=== PATIENT | male | born 1945 | race Caucasian/White ===

== ENCOUNTER 2024-05-07 21:19 | Emergency (ER) | payer MEDICARE, OTHER, SELFPAY ==
[2024-05-07 21:49] LABS: Urine Albumin 1+ (Neg - Trace); Urine Bilirubin Negative (Negative); Urine Character Clear (Clear); Urine Color Yellow; Urine Glucose Negative (Negative); Urine Ketone Negative (Negative); Urine Leukocyte 1+ (Negative); Urine Nitrite Negative (Negative); Urine Occult Blood 3+ (Negative); Urine Urobilinogen Negative (Neg - 1+)
[2024-05-07 22:25] LABS: Urine Bacteria Few (Negative); Urine Red Blood Cell 21-25 /HPF (0-2); Urine White Cell 50-60 /HPF (0-5)
== END 2024-05-07 23:39 ==
LOC: EMR 21:19
PROVIDERS: Emergency Medicine
DX: R33.9 Retention of urine, unspecified (principal)
CPT/HCPCS: 81003; 81015; 87086

== ENCOUNTER 2024-08-15 14:25 | Inpatient (IN) | payer MEDICARE, OTHER, SELFPAY ==
[2024-08-15] VITALS (19 sets, daily range): BP systolic 121–164; BP diastolic 67–89; BMI 25.8
--- NOTE | 2024-08-15 09:39 | ED.GENMED ---
History of Present Illness
General
Chief Complaint: Dizziness
Source: patient
Exam Limitations: none
Time Seen by Provider: 08/15/24 09:25
History of Present Illness
History of Present Illness:
79yoM with a history of atrial fibrillation s/p 2 ablations no longer on medications and radiation cystitis presenting for evaluation of shortness of breath. Patient was initiated on hyperbaric oxygen therapy 2 weeks at [facility]
for radiation-related hemorrhagic cystitis. He is receiving treatments 5x a week and is scheduled to have 50 treatments total. Shortly after starting these treatments, he developed shortness of breath. He states he is unable to walk more than 10
steps without having to stop to catch his breath. He also started to notice bilateral lower extremity swelling over the past week. The triage note documents dizziness which he is describing as exertional dyspnea. He denies any lightheadedness,
syncope, or vertiginous symptoms. No chest pain.
Phy Exam
General Physical Exam
General Presentation: well appearing and no apparent distress
General age: appears stated age
General Skin: warm and dry
General Habitus: normal
General Mental: alert
ENT Exam
ENT Exam: normocephalic
Cardiovascular Exam
Cardiovascular Exam: regular rate/rhythm and other (2+ pitting edema in bilateral lower extremities)
Pulmonary Exam
Pulmonary Exam: lungs clear, no respiratory distress, no rales, no crackles, no rhonchi and no wheezing
Neurological Exam
Neurological Exam: alert
[place] Coma Scale
Eye Opening: Spontaneous
Verbal Response: Oriented
Motor Response: Obeys Commands
GCS Total Score: 15
Skin Exam
Skin Exam: normal color and warm/dry
Psychiatric Exam
Psychiatric Exam: normal mood/affect
Course
Orders/Labs/Results
Orders:
Orders
08/15/24 09:38
Cardiac Monitoring- Treatment ONCE
CR Chest - 2 Views Urgent
Comment:
Reason For Exam: SOB
Venous Doppler Lwr Ext Bilat [US Periph Venous LOWER Ext Pietro] Urgent
Comment:
Reason For Exam: bilateral leg swelling
08/15/24 09:51
Complete Blood Count/With Diff Urgent
Comprehensive Metabolic Panel Urgent
Ferritin Urgent
Comment: ADD ON
Iron Urgent
Comment: ADD ON
NT-proBNP Urgent
TSH Reflex To Free T4 Urgent
Comment: ADD ON
Total Iron Binding Urgent
Comment: ADD ON
Troponin I Urgent
Vitamin B12 Urgent
Comment: ADD ON
08/15/24 11:00
Blood Bank Products [* Blood Bank Products] Urgent
Blood Bank Products: *Packed RBC Leuko(PRBC's)
Quantity: 2
Transfuse Today: Yes
Reason: Anemia
08/15/24 11:03
Electrocardiogram (*1) Urgent
Reason for Study: Shortness of Breath
EKG- Treatment ONCE
08/15/24 11:07
Type+Screen Urgent
08/15/24 11:23
ABO2 Urgent
BBK Wristband Number:
Associate notified that ABO2 has been ordered: HENNY-ER
Date: 08/15/24
Time: 11:17
Director Clinical Operations ID: [id number]
08/15/24 13:51
Add On- LAB Urgent
Tests Added?: Ferritin, Iron, TIBC, Iron % saturation, vitamin b12
08/15/24 14:04
Echo 2D MMode Color/Doppler Routine
Reason for Study: shortness of breath and LE swelling
Furosemide [Lasix] 20 mg IV NOW STA
08/15/24 14:09
Admit/Transfer Patient As Directed
Co-Sign Provider:
Level of Care: Inpatient admission
Assign to:: Telemetry
Physician / Group: Judy Bush
Diagnosis: symptomatic anemia
Reason for Telemetry: Chest Pain syndromes
Date to Stop Telemetry: 08/17/24
Time to Stop Telemetry: 11:00
Reason for Hospitalization: symptomatic anemia
Expected length of stay greater than two midnights?: Yes
ELOS- Estimated Length of Stay in days: 3
I certify the patient meets the requirements for IP care: Yes
Code Status As Directed
Resuscitation Status: Full Code
PRN Pain Medication Management As Directed
May give lesser potent ordered pain med per pt: Yes
preference::
Protocol:: Medication orders for pain may be administered in a
manner that supports deferring to patient preference
when the pt is:
- Requesting an ordered lesser potent pain medication.
Least to most potent pain medications are defined
as: acetaminophen < NSAID < tramadol < opioids
(morphine, oxycodone, hydromorphone).
- Requesting a lesser dose of the same medication IF
ORDERED.
- Requesting a less intrusive route of administration
if both routes are prescribed by the provider (PO <
IV).
08/15/24 14:10
Add On- LAB Routine
Tests Added?: TSH with reflex to T4
08/17/24 11:00
DC Protocol for Telemetry ONCE
Abnormal Lab Results
08/15/24 08/15/24
09:51 11:07
WBC 3.4 L 10^3/uL
(4.8-10.8)
RBC 2.19 L 10^6/uL
(4.70-6.10)
Hgb 5.9 L* g/dL
(13.0-18.0)
Hct 20.0 L* %
(39.0-52.0)
MCH 26.9 L pg
(27.0-31.0)
MCHC 29.5 L g/dL
(33.0-37.0)
RDW 17.6 H %
(11.5-14.5)
Plt Count 94 L 10^3/uL
(130-400)
Absolute Lymphs (auto) 0.5 L 10^3/uL
(1.2-3.4)
Immature Gran % 0.9 H %
(0-0.5)
Lymphocytes % 14.0 L %
(20.5-51.1)
Creatinine 0.6 L mg/dL
(0.7-1.3)
Glucose 101 H mg/dl
(70-99)
Iron 35 L ug/dl
(49-181)
% Saturation 8 L %
(20-50)
Ferritin 7.9 L ng/ml
(17.9-464.0)
Total Protein 5.5 L g/dl
(6.3-8.2)
Albumin 3.3 L g/dl
(3.5-5.0)
Crossmatch IS Only See Detail
08/15/24 09:51
08/15/24 09:51
Vital Signs
Initial and Last Documented VS:
Initial Vital Signs
Temp Pulse Resp Pulse Ox
97.5 F 71 18 100
08/15/24 09:08 08/15/24 09:08 08/15/24 09:08 08/15/24 09:08
Last Documented Vital Signs
Temp Pulse Resp BP Pulse Ox
97.8 F 70 19 134/72 97
08/15/24 14:22 08/15/24 14:45 08/15/24 14:45 08/15/24 14:48 08/15/24 12:43
MDM/Problems Addressed
Differential Diagnosis Includes:
79yoM here with exertional dyspnea x 2 weeks and bilateral leg swelling x 1 week. Symptoms started after being initiated on hyperbaric oxygen therapy for radiation cystitis. VSS. He is well in no acute distress. He is speaking in full sentences
without difficulty and lungs clear to auscultation. There is 2+ pitting edema in bilateral lower extremities. Differential diagnosis includes but is not limited to: VTE, CHF, anasarca, ACS
Initial ED plan: Check cardiac labs, EKG, CXR, and bilateral venous duplex.
*EKG
Interpreted by ED Provider?: Yes
EKG Intrepretation Date: 08/15/24
Heart Rate: 64
Rate: normal
Rhythm: sinus
[place]: normal axis
Interval: normal interval
Ischemia: no ischemia
*Critical Care Note
Total Time (30-74mins, 75-104mins- exclusive of procedures): Not Applicable
Update Note
Update Note:
Labs reveal a hemoglobin of 5.9. Unclear baseline as there are no prior labs to compare to although patient has never required a blood transfusion in the past. He has a history of hematuria but has not had any bleeding in the last week. He denies
any hematochezia. Consent obtained and 2 units PRBCs ordered for transfusion. BNP 529. EKG shows normal sinus rhythm without ischemic changes and troponin within normal limits. Patient admitted for further evaluation and management.
ED Attending Note
-
Portions of this chart may have been created with voice recognition software.� Occasional wrong word or��sound alike� substitutions may have occurred due to the inherent limitations of voice recognition software.
Discharge Plan
Departure
Patient Disposition: Admit
Date of Disposition: 08/15/24
Time of Disposition: 11:39
Presentation/result/management discussed w/ accepting MD/DO: Hospitalist
Discharge Problem:
Symptomatic anemia, Bilateral lower extremity edema
Interventions
Interventions:
*Risk Screen - Suicide Last Done: 08/15/24 09:54
*General Assessment Last Done: 08/15/24 09:44
*Neglect/Abuse Screening Last Done: 08/15/24 09:54
*ED- Fall Risk Assessment Last Done: 08/15/24 09:44
*ED COVID-19 Vaccine History Last Done: 08/15/24 09:44
ED- Neurological Assessment Last Done: 08/15/24 09:54
ED- Cardiac Assessment Last Done: 08/15/24 11:34
[2024-08-15 10:05] LABS: % Basophils 0.3 % (0-2); % Eosinophils 2.6 % (0-6); % Immature Granulocytes 0.9 % (0-0.5); % Monocytes 7.6 % (1.7-9.3); % Neutrophils 74.6 % (42.2-75.2); Absolute Eosinophils 0.1 10^3/uL (0-0.7); Absolute Lymphocytes 0.5 10^3/uL (1.2-3.4); Absolute Monocytes 0.3 10^3/uL (0.1-0.6); Absolute Neutrophils 2.6 10^3/uL (1.4-6.5); Hemoglobin 5.9 g/dL (13.0-18.0); Mean Corp Hgb Conc. 29.5 g/dL (33.0-37.0); Mean Corpuscular Hgb 26.9 pg (27.0-31.0); Mean Corpuscular Volume 91.3 fL (80.0-94.0); Nucleated Red Blood Cells % 0 % (-); Red Blood Cell Count 2.19 10^6/uL (4.70-6.10); Red Cell Dist. Width 17.6 % (11.5-14.5); White Blood Cell Count 3.4 10^3/uL (4.8-10.8)
[2024-08-15 10:13] LABS: ALT (SGPT) 14 U/L (0-50); AST (SGOT) 19 U/L (17-59); Albumin 3.3 g/dl (3.5-5.0); Alkaline Phosphatase 63 U/L (38-126); Blood Urea Nitrogen 14 mg/dl (9-20); Carbon Dioxide 26 mmol/L (22-30); Chloride 106 mmol/L (98-107); Estimated Creatinine Clearance 108 ml/min; Glucose 101 mg/dl (70-99); Potassium 4.2 mmol/L (3.5-5.1); Sodium 139 mmol/L (135-145); Total Bilirubin 0.5 mg/dl (0.2-1.3); Total Protein 5.5 g/dl (6.3-8.2); eGFR > 60.00
[2024-08-15 10:24] LABS: NT-proBNP 529 pg/ml; Troponin I < 0.012 ng/ml
[2024-08-15 10:46] LABS: Mean Platelet Volume 9.8 fL (7.4-10.4); Platelet Count 94 10^3/uL (130-400)
--- NOTE | 2024-08-15 13:46 | HPS.HSE ---
Addendum entered and electronically signed by Judy Bush MD 08/15/24 14:23:
*patient is prescribed amoxicillin with recent dental procedure - will prescribe here
Original Note:
Family Physician
-
Family Physician: Luli Ocampo
Chief Complaint
-
shortness of breath
History of Present Illness
Mr. Mark Boyd is a 79 yo man with hx afib s/p ablations, prostate CA, radiation cystitis (initiated on hyperbaric oxygen therapy 2 weeks ago at [facility]; self-catheterizes) presents to the ER complaining of shortness of breath and bilateral
lower extremity swelling.
Patient was started on hyperbaric oxygen therapy last week and has noted improvement in hematuria. He states his urine is now clear. Prior he reports significant hematuria. He states he last had blood drawn 4-5 weeks ago. He was started on iron
pills in past but couldn't tolerate secondary to constipation.
Last week he noticed increased shortness of breath with exertion. No orthopnea. Yesterday he couldn't take 10 steps without feeling short of breath. No chest pain. He felt a heavy heart beat but did not feel like prior afib.
No recent fevers/chills. No cough or congestion. No abdominal pain. No nausea/vomiting. No diarrhea. No black or bloody stools.
Patient self catheterizes.
Medical History
Past Medical History
Past Medical History: Reports Other (afib s/p ablations, prostate CA, radiation cystitis (initiated on hyperbaric oxygen therapy 2 weeks ago at [facility]))
Past Surgical History: Reports Other
Social History
Tobacco: Non-smoker
Alcohol: None
Family History
Family History: Not pertinent
Allergies / Home Medications
Allergies reflects when Allergies were last updated in [facility].
Home Medications with original date entered in [facility]
Allergy/Medication List:
Allergies
Allergy/AdvReac Type Severity Reaction Status Date / Time
No Known Allergies Allergy Verified 08/15/24 09:09
Home Medications
acetaminophen 325 mg tablet (Tylenol) 650 mg PO Q6HPRN PRN mild pain 08/15/24
amoxicillin 500 mg capsule 500 mg PO QID 08/15/24
Review of Systems
-
History Source: Patient
A 12 point ROS was completed and negative except as noted: Yes
Physical Exam
Vital Signs
Vital Signs
Temp Pulse Resp BP Pulse Ox
97.7 F 73 15 126/67 97
08/15/24 12:59 08/15/24 12:59 08/15/24 12:59 08/15/24 12:59 08/15/24 12:43
Physical Exam
General: No Apparent Distress and Conversant
HEENT: PERRLA and Other (pale conjunctiva )
Respiratory: Clear; No Wheezes
Cardiac: S1/S2 and Regular Rhythm
GI: Soft and Non Tender
Musculoskeletal: No Edema
Skin: Warm and Dry; No Rash
Neuro: AO x 3
Psych: Calm
Laboratory Results
-
08/15/24 09:51
08/15/24 09:51
Laboratory Results
Total Bilirubin 0.5 mg/dl (0.2-1.3) 08/15/24 09:51
AST 19 U/L (17-59) 08/15/24 09:51
ALT 14 U/L (0-50) 08/15/24 09:51
Alkaline Phosphatase 63 U/L (38-126) 08/15/24 09:51
Troponin I < 0.012 ng/ml 08/15/24 09:51
Data Reviewed
-
Diagnostic Radiology: Report Reviewed by me
Lab Data: Labs Reviewed by me
Impression/Plan
-
Mr. Mark Boyd is a 79 yo man with hx afib s/p ablations, prostate CA, radiation cystitis (initiated on hyperbaric oxygen therapy 2 weeks ago at [facility]) presents to the ER complaining of shortness of breath and bilateral lower extremity
swelling.
Triage VS: T 97.5, P 71, RR 18, SpO2 100%
LABS: WBC 3.4, Hg 5.9, PLT 94, Na 139, K+ 4.2, CO2 26, Cr 0.6, Glucose 101, Ca 9.0, T. Bili 0.5, AST 19, ALT 14, Alk Phos 63, Trop < 0.012
CXR: IMPRESSION: Basilar changes of subsegmental atelectasis/scarring. Otherwise, clear lungs.
LE US: IMPRESSION: Negative for bilateral lower extremity deep venous thrombosis.
Symptomatic Anemia
Dyspnea on Exertion
-etiology may be related to prior hematuria, although symptoms worsening post treatment and hematuria is now resolved. Will monitor response to transfusions and iron studies.
-ordered for 2 units PRBC in the ER
-add on iron studies
-admit to telemetry
-repeat Hg this evening
Bilateral Lower Extremity Swelling
concern for heart failure, unknown EF
-TTE
-lasix 20mg IV now and daily
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
Atrial Fibrillation
-hx ablation
-not on AC
DVT PPx SCD
FULL CODE
[2024-08-15 14:31] LABS: Iron 35 ug/dl (49-181)
[2024-08-15 14:41] LABS: Percent Saturation 8 % (20-50); Total Iron Binding Capacity 398 ug/dl (261-462)
[2024-08-15] MEDS: LASIX 20 MG IV (14:48)
[2024-08-15 16:07] LABS: TSH Reflex To Free T4 2.01 uIU/ml (0.47-4.68)
[2024-08-15 16:10] LABS: Ferritin 7.9 ng/ml (17.9-464.0)
[2024-08-15 16:25] LABS: Vitamin B12 246 pg/ml (239-931)
--- NOTE | 2024-08-15 17:14 | PTCARENOTE ---
Pt transferred from ED. Pt ambulated into room. Pt AAOX3, able to make needs known, VSS. Pt oriented to unit, call calvillo within reach, bed in lowest position. Will continue with current plan.
[2024-08-15] MEDS: AMOXIL 500 MG PO ×2 (17:28→21:18)
[2024-08-15 23:05] LABS: Hemoglobin 7.3 g/dL (13.0-18.0)
--- NOTE | 2024-08-16 00:03 | PTCARENOTE ---
Pt's repeat Hgb after 2 units of PRBCs is 7.3. Pt reports that he now has a few small red scabs in his urine and his urine is 'gokul'-colored'. AISSATOU Colmenares notified, will recheck Hgb in AM.
[2024-08-16 03:08] VITALS: BP 110/57; BMI 24.8
[2024-08-16 07:23] LABS: Hematocrit 24.3 % (39.0-52.0); Hemoglobin 7.5 g/dL (13.0-18.0); Mean Corp Hgb Conc. 30.9 g/dL (33.0-37.0); Mean Corpuscular Hgb 27.4 pg (27.0-31.0); Mean Corpuscular Volume 88.7 fL (80.0-94.0); Mean Platelet Volume 10.6 fL (7.4-10.4); Platelet Count 98 10^3/uL (130-400); Red Blood Cell Count 2.74 10^6/uL (4.70-6.10); Red Cell Dist. Width 18.2 % (11.5-14.5); White Blood Cell Count 4.6 10^3/uL (4.8-10.8)
[2024-08-16 07:29] VITALS: BP 130/72
[2024-08-16 07:43] LABS: Blood Urea Nitrogen 13 mg/dl (9-20); Carbon Dioxide 29 mmol/L (22-30); Chloride 106 mmol/L (98-107); Estimated Creatinine Clearance 91 ml/min; Glucose 89 mg/dl (70-99); HDL Cholesterol 56 mg/dl; LDL Cholesterol, Calculated 88 mg/dl; Magnesium 2.1 mg/dl (1.6-2.3); Potassium 4.4 mmol/L (3.5-5.1); Sodium 140 mmol/L (135-145); Total Cholesterol 158 mg/dl (50-199); Triglyceride 72 mg/dl (10-149); Very Low Density Lipoprotein 14 mg/dl (0-30); eGFR > 60.00
[2024-08-16] MEDS: AMOXIL 500 MG PO ×2 (07:47→11:59)
[2024-08-16] MEDS: LASIX 20 MG IV (07:47)
--- NOTE | 2024-08-16 11:02 | CM ---
government program manager reviewed patient chart and met with patient and patient states he lives with his spouse in a bilevel home, patient is independent with adl's and ambulation, no dme, patient drives.
PCP: Luli Ocampo
Pharmacy: [facility]
Plan; Home when stable. No needs.
--- NOTE | 2024-08-16 11:32 | W.PN.HOSP.TC ---
Today's Communication/Plan
-
OK for DC today post IV iron infusion
Assessment / Plan
Assessment / Plan
Mr. Mark Boyd is a 79 yo man with hx afib s/p ablations, prostate CA, radiation cystitis (initiated on hyperbaric oxygen therapy 2 weeks ago at [facility]) presents to the ER complaining of shortness of breath and bilateral lower extremity
swelling.
CXR: IMPRESSION: Basilar changes of subsegmental atelectasis/scarring. Otherwise, clear lungs.
LE US: IMPRESSION: Negative for bilateral lower extremity deep venous thrombosis.
CONCLUSIONS
Normal left ventricular size and systolic function. LVEF 55-60%.
Mildly enlarged right ventricle with normal systolic function.
Severely dilated left atrium.
Prolapse of the posterior mitral leaflet was present. Moderate mitral
regurgitation.
Mild to moderate tricuspid regurgitation. PASP 46 mmHg.
No prior study available for comparison.
Indications:
SHORTNESS OF BREATH AND LE SWELLING
Symptomatic Anemia
Dyspnea on Exertion
-etiology may be related to prior hematuria, although symptoms worsening post treatment and hematuria is now resolved.
-appropriate rise in Hg post transfusions, no active bleeding and symptoms resolved --> OK for DC
-IV iron prior to DC
-follow up outpatietn labs
Hx Radiation Cystitis; receiving hyperbaric oxygen therapy - to continue as outpatient
Bilateral Lower Extremity Swelling
concern for heart failure, preserved EF acute Exacerbation; likely exacerbated by anemia
Moderate MR with mitral valve prolapse
-TTE results above, nl EF. Patient states leaky valve isn't new
-s/p IV Lasix - DC on oral lasix PRN
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
Atrial Fibrillation
-hx ablation
-not on AC
DVT PPx SCD
FULL CODE
Anticipated Discharge: Today
Subjective/Interval History
-
Date of Service: August 16, 2024
feeling much better
shortness of breath resolved
legs less swollen
Objective Data
-
Labs:
Laboratory Results
08/16/24
06:08
WBC 4.6 L
Hgb 7.5 L
Hct 24.3 L
Plt Count 98 L
Sodium 140
Potassium 4.4
Chloride 106
Carbon Dioxide 29
BUN 13
Creatinine 0.7
Glucose 89
Calcium 9.0
Vital Signs:
Vital Signs
Temp Pulse Resp BP Pulse Ox
97.7 F 70 18 130/72 95
08/16/24 07:29 08/16/24 07:29 08/16/24 07:29 08/16/24 07:29 08/16/24 07:29
I&O
08/15/24 08/16/24 08/17/24
06:59 06:59 06:59
Intake Total 1460 / 1460
Balance 1460 / 1460
Review of Systems
-
History Source: Patient
All other systems: Reviewed and negative
Physical Exam
-
General: No Apparent Distress and Conversant
HEENT: PERRLA
Respiratory: Clear to Auscultation; Negative Wheezes
Cardiac: Regular Rhythm and S1/S2
GI: Soft and Nontender
Musculoskeletal: Other (1+ pitting edema equal bilaterally )
Skin: Warm and Dry; Negative Rash
Neuro: AO x 3
Psych: Calm
Data Reviewed
-
Diagnostic Radiology: Report Reviewed by me
Labs: Labs Reviewed by me
[2024-08-16 11:42] VITALS: BP 131/74
--- NOTE | 2024-08-16 11:56 | W.DS.TRANS ---
DC Summary - [employer]
-
Discharge Instructions:
Discharge Diagnosis/Procedures symptomatic anemia; lower extremity swelling
Diet Regular
Activity As tolerated
Driving Restrictions As prior to admission
Bathing Restrictions None
Blood Work CBC and BMP in 3-4 days
Specialty Instructions Weigh Daily
Instructions: Good food sources of iron
Stand-Alone Forms:
Changes to Home Medications: Yes
Discharge Medications:
DC Medications w/original date entered in [facility]
acetaminophen 325 mg tablet (Tylenol) 650 mg PO Q6HPRN PRN mild pain 08/15/24
amoxicillin 500 mg capsule 500 mg PO QID 08/15/24
furosemide 20 mg tablet (Lasix) 20 mg PO DAILY PRN lower extremity swelling #30 tabs 08/16/24
Home Medication Changes
addition of Lasix as needed
Pending Results: No
[2024-08-16] MEDS: FERRLECIT 110 MG IV (11:58)
--- NOTE | 2024-08-16 13:29 | W.DCSUMMARY ---
Discharge Summary
Discharge Data
Date of Admission: 08/15/24
Date of Discharge: 08/16/24
-
Pending Results: No
Hospital Course
Discharging Physician : Dr. Judy Bush
Disposition : Home
Primary care physician : Dr. Eugene Fallon
Principal Discharge diagnosis : Symptomatic Anemia
Hospital Course :
Mr. Mark Boyd is a 79 yo man with hx afib s/p ablations, prostate CA, radiation cystitis (initiated on hyperbaric oxygen therapy 2 weeks ago at [facility]; self-catheterizes) presents to the ER complaining of shortness of breath and bilateral
lower extremity swelling.
Triage vitals stable. Labs with Hg 5.9, Troponin < 0.012. CXR with subsegmental atelectasis and LE US without e/o DVT. He was ordered for 2 units PRBC.
Regarding anemia, iron studies showed iron deficiency. Patient's Hg gokul appropriately post 2 units PRBC. His symptoms of shortness of breath with exertion resolved. He received one dose of IV iron prior to discharge. We discussed trialing slow
iron every other day (as he has had issues with constipation on iron tabs in past), and eating iron fortified foods. Anemia likely fully explained by prior significant hematuria which has now resolved post initiation of hyperbaric oxygen. Patient
is due for a colonoscopy as outpatient. He will discuss whether or not EGD indicated.
Patient's LE swelling improved with IV lasix. TTE showed EF 55-60%; moderate MR with prolapse of posterior mitral leaflet. Patient reports a history of a 'leaky valve' He will discuss these findings with his Meeting Manager. Heart failure
exacerbated by anemia. He is prescribed Lasix 20mg to take as needed for swelling.
CBC and BMP ordered for 3-4 days. He will follow up to continue his hyperbaric oxygen therapy, follow up with GI and Cardiology.
Time spent on discharge was 40 minutes.
Important imaging findings :
TTE
CONCLUSIONS
Normal left ventricular size and systolic function. LVEF 55-60%.
Mildly enlarged right ventricle with normal systolic function.
Severely dilated left atrium.
Prolapse of the posterior mitral leaflet was present. Moderate mitral
regurgitation.
Mild to moderate tricuspid regurgitation. PASP 46 mmHg.
No prior study available for comparison.
Procedure findings :
Discharge Plan
-
Patient Disposition: Home (Routine Discharge)
Discharge Diagnosis/Procedures: symptomatic anemia; lower extremity swelling
Diet: Regular
Activity: As tolerated
Driving Restrictions: As prior to admission
Bathing Restrictions: None
Blood Work: CBC and BMP in 3-4 days
Specialty Instructions: Weigh Daily- Call MD for wt gain/loss 3 lbs overnight/5 lbs in 1 week
Activity Restrictions/Additional Instructions:
Continue Hyperbaric Oxygen therapy as scheduled
Follow up closely with your Meeting Manager to discuss this hospitalization where you were treated for heart failure with IV lasix for lower extremity swelling. Your echocardiogram showed normal ejection fraction (55-60%) and prolapse of the posterior
mitral leaflet was present with Moderate mitral regurgitation (leaky heart valve)
Call your GI physician's office to make them aware that you were just hospitalized for symptomatic iron deficiency anemia. This is likely secondary to prior hematuria but I recommend to discuss if endoscopy is recommended in addition to
colonoscopy.
Please repeat labs on Sunday or Sunday; these labs will be sent to your outpatient providers.
Instructions: Good food sources of iron
Referrals:
Luli Ocampo, DO [Family Provider] - in less than 1 week
Additional Discharge Medication Instructions: Take Lasix 20mg daily as needed for lower extremity swelling (You do not have to take daily if swelling resolved).
Consider trialing Iron tabs (slow release iron) every other day to see if tolerate; You can also look to eat more iron fortified foods
Prescriptions:
New
furosemide [Lasix] 20 mg tablet
20 mg PO DAILY PRN (Reason: lower extremity swelling) Qty: 30 0RF
Continued
amoxicillin 500 mg Capsule
500 mg PO QID
acetaminophen [Tylenol] 325 mg Tablet
650 mg PO Q6HPRN PRN (Reason: mild pain)
Discharge Orders:
Discharge Patient (As Directed); Ordered 08/16/24
Ordered By: Judy Bush
Discharge Date and Time
Print Language: CYMRAES
== END 2024-08-16 13:46 | disposition home or self-care (01) | DRG 812 ==
LOC: 4 WEST ACU 14:25
PROVIDERS: Physician Assistant; ADMITTING PHYSICIAN Student in an Organized Health Care Education/Training Program; EMERGENCY PHYSICIAN Emergency Medicine; FAMILY PHYSICIAN Family Medicine
PROC: 30233N1 Transfusion of Nonautologous Red Blood Cells into Peripheral Vein, Percutaneous Approach (ICD-10-PCS; 2024-08-15)
DX: D50.9 Iron deficiency anemia, unspecified (principal); J98.11 Atelectasis; I48.91 Unspecified atrial fibrillation; Z85.46 Personal history of malignant neoplasm of prostate; I34.0 Nonrheumatic mitral (valve) insufficiency; I07.1 Rheumatic tricuspid insufficiency; I50.9 Heart failure, unspecified
CPT/HCPCS: 36430; 71046; 80048; 80053; 80061; 82607; 82728; 83540; 83550; 83735; 83880; 84443; 84484; 85018; 85025; 85027; 86850; 86900; 86901; 86920; 93005; 93306; 93970; 99285; J2916; P9016